=== PATIENT | male | born 1940 | race Caucasian/White ===

== ENCOUNTER 2024-08-02 07:22 | Outpatient (CLI) | payer MEDICARE, SELFPAY ==
--- NOTE | 2024-08-02 06:00 | DI.RAD_ITS ---
Exam(s) XR PAIN CLINIC SACRIOILIAC 2V EXAM: XR PAIN CLINIC SACRIOILIAC 2V CLINICAL HISTORY: Dx: Sacroiliac Joint Dysfunction TECHNIQUE: 2D and realtime digital imaging was performed. CONTRAST MATERIAL: Refer to procedure report. COMPARISON: No exams were available for comparison FINDINGS: Fluoroscopy was provided for Dr. Romo during the performance of a right sacroiliac joint injectio n. Please refer to the procedure report for complete details. Ka,r=11.7 mGy IMPRESSION: RADIATION DOSE DELIVERED: 0.0 0.0 0
[2024-08-02 07:27] VITALS: BP 117/83; PULSE 76; RESP 18; TEMP 36.1; O2SAT 98
--- NOTE | 2024-08-02 07:35 | PDOC.PAIN_ITS ---
Date of service: 08/02/24 Time of Service: 08:08 Pain Managment Procedure Note Procedure Note Procedure Note: ?Sacroiliac Joint Steroid Injection ? Location: ? Right SI Joint? Pre-procedure Diagnosis: Sacroiliitis, not elsewhere classified - M46.1 ? Post-procedure Diagnosis:? The same as above ? Sedation:? NONE ? Medication: Depo-Medrol 40 mg, bupivacaine 0.5% 1 mL, Omnipaque 0.25 mL per joint ? Estimated blood loss:? less than 2 cc ? Surgeon:? Familia Romo MD ? COMMENT: THIS WILL BE BOTH DIAGNOSTIC AND THERAPEUTIC ? Procedure Detail:? The procedure and potential risks were explained to the patient and informed written consent was obtained. The patient was escorted to the procedure room and placed in the prone position. Pillows were utilized for proper positioning and comfort. Time out was performed in the procedure room with nursing staff confirming the patient's identity, procedure to be performed, allergies, and any blood thinning or anti-platelet medications. The patient's lumbosacral area was prepped with ChloraPrep and draped in a sterile fashion. Sterile technique was maintained throughout the procedure.? Sterile gloves were used, a face mask was worn, and new single dose vials of all medications were used with the top being swabbed with alcohol and given time to dry prior to withdrawal of medication. Lidocaine 1% was used to anesthetize the skin. With fluoroscopic guidance, a 22-gauge 3.5 spinal needle was advanced into the posteroir inferior aspect of the Right SI joint . Confirmation of position of the needle tip was obtained with injection of 0.25cc of Omnipaque 240 contrast which showed appropriate spread within the joint.? Following negative aspiration, 40mg of methylprednisolone mixed with 1 mL of bupivacaine 0.5% was injected.? The needle was gently removed. ?The patient tolerated the procedure well and was transported to the recovery area for observation and discharge instructions.? Permanent images saved and recorded. Plan:? Follow up prn. PAIN PRE PROCEDURE 11/19 POST PROCEDURE 08/19 COMMENT: [30] % BETTER AFTER INJECTION If this is not helpful I would try one right L3 transforaminal steroid injection. Will send back to [facility] to see Dr. Venegas not improving with more conservative care I Coding Conscious Sedation used for procedure: No CPT Codes: SI Joint Inj; incl Fluoro - 51153 ([id number] ~G) Additional Codes: Date of Service (08900) Date of service: 08/02/24
[2024-08-02] MEDS: methylPREDNISolone ACETATE 80 MG/ML VIAL IJ (08:11)
[2024-08-02] MEDS: Bupivacaine 0.5% Pres-Free 10 ML VIAL IJ (08:11)
[2024-08-02] MEDS: Nerve Block Tray 1 EACH MC (08:12)
[2024-08-02] MEDS: Omnipaque 240 MG/ML 50 ML BTL IJ (08:12)
[2024-08-02 08:13] VITALS: PULSE 80; O2SAT 96
== END 2024-08-02 07:23 | disposition home or self-care (01) ==
LOC: PC 07:24
PROVIDERS: PCP Internal Medicine; Visit Provider Anesthesiology Pain Medicine
DX: M46.1 Sacroiliitis, not elsewhere classified (principal); M54.50 Low back pain, unspecified
CPT/HCPCS: 27096; 72200; J0665; J1010; Q9967